=== PATIENT | male | born 1995 | race Caucasian/White ===

== ENCOUNTER 2021-04-30 12:34 | Emergency (ER) | payer OTHER, SELFPAY ==
[2021-04-30 12:55] VITALS: BP 116/64; PULSE 72; RESP 16; TEMP 36.9; O2SAT 99
--- NOTE | 2021-04-30 13:29 | ED.MALEGU ---
HPI - Male Genitourinary General Chief complaint: Urogenital-Male Stated complaint: swollen rt testicle Time Seen by Provider: 04/30/21 13:06 Source: patient and RN notes reviewed Mode of arrival: ambulatory Limitations: no limitations History of Present Illness HPI Narrative: Patient presents today with a 1 week history of right testicular pain and swelling that has been worsening since onset. Denies any additional symptoms to include dysuria, hematuria, penile discharge. Currently rates pain 9/10 and has been taking ibuprofen, Aleve, and Tylenol without relief. MD Complaint: testicle pain and testicle swelling Related Data Home Medications Medication Instructions Recorded Confirmed No Home Medications 04/30/21 04/30/21 Allergies Allergy/AdvReac Type Severity Reaction Status Date / Time No Known Allergies Allergy Verified 10/18/16 14:03 Review of Systems Review of Systems: CONSTITUTIONAL: Denies body aches, fever, chills, or sweats. EYES: Denies visual changes, redness, or discharge. ENT: Denies rhinorrhea, congestion, sore throat, or otalgia. CARDIOVASCULAR: Denies chest pain, palpitations, or edema. RESPIRATORY: Denies cough or dyspnea. GASTROINTESTINAL: Denies abdominal pain, nausea, vomiting, or diarrhea. GENITOURINARY: Denies dysuria or hematuria.+ Right testicular pain and swelling SKIN: Denies rash, itching, or wounds. MUSCULOSKELETAL: Denies back pain, joint pain, or myalgia. NEUROLOGIC: Denies headache, numbness, tingling, or weakness. PSYCH: Denies depression or anxiety. PMFSH Comments At time of signature, I have reviewed and agree with nursing past medical, surgical, social and family history unless otherwise noted. Please see nursing chart for further information. There is no relevant family history pertinent to the presenting complaint Exam Narrative: GENERAL: Well-appearing, well-nourished, and in no acute distress. HEAD: Normocephalic, atraumatic. EYES: EOMI. No redness or drainage. Conjunctivae normal. ENT: Mucous membranes pink and moist. NECK: Normal AROM. CHEST: No respiratory distress. : Right testicle is swollen and firm. No erythema noted. Tenderness to palpation inferiorly. No swelling or tenderness to the left testicle. Penis normal. MUSCULOSKELETAL: No bony tenderness. EXTREMITIES: Normal range of motion. No edema. SKIN: Warm, dry, no rash. Capillary refill normal. Normal skin turgor. NEURO: No focal deficits. Alert and oriented x3. Gait steady. PSYCH: Normal affect. No signs of depression or anxiety. Course Vital Signs Vital signs: Vital Signs Temperature 98.4 F 04/30/21 12:55 Pulse Rate 72 04/30/21 12:55 Respiratory Rate 16 04/30/21 12:55 Blood Pressure 116/64 04/30/21 12:55 Pulse Oximetry 99 04/30/21 12:55 Temperature 98.4 F 04/30/21 12:55 Pulse Rate 72 04/30/21 12:55 Respiratory Rate 16 04/30/21 12:55 Blood Pressure 116/64 04/30/21 12:55 Pulse Oximetry 99 04/30/21 12:55 Reviewed Transfer Transfered to: [facility] Transportation: Other (Private vehicle) Transfer rationale: Testicular pain and swelling Accepting physician: Dr. Beck MDM - Male Genitourinary Differential Diagnosis Differential diagnosis: Likely urethritis, epididymitis and other (Varicocele, hydrocele) Critical Care Time Critical Care Time Critical Care Time: No Discharge Plan Discharge Clinical Impression: Swelling of right testicle Patient Disposition: Acute Care Hospital Condition: Stable Prescriptions: No Action No Home Medications RF: 0 Follow-up/Referrals: UNKNOWN,DOCTOR [Primary Care Provider] - Time of Disposition: 13:34
== END 2021-04-30 13:39 | disposition short-term general hospital (02) ==
PROVIDERS: Emergency Provider Nurse Practitioner
DX: N50.89 Other specified disorders of the male genital organs (principal); Z86.14 Personal history of Methicillin resistant Staphylococcus aureus infection
CPT/HCPCS: 99212; G0463

== ENCOUNTER 2021-04-30 14:25 | Emergency (ER) | payer OTHER, SELFPAY ==
--- NOTE | ~2021-04-30 | US_ITS ---
EXAMINATION: US scrotum doppler DATE: 04/30/2021 15:22 INDICATION: Right testicular pain. TECHNIQUE: Grayscale and Doppler ultrasound images of the testes were obtained. COMPARISON: None. FINDINGS: The right testis measures 3.4 x 2.1 x 2.4 cm. The left testis measures 3.9 x 2.1 x 2.3 cm. There is normal vascular flow to both testes. The right epididymis demonstrate enlargement of the geremias l with increased vascularity, consistent with epididymitis. The left epididymis demonstrates a 0.8 cm cyst. There is a small right hydrocele. IMPRESSION: 1. Right-sided epididymitis. 2. Small right hydrocele. Reviewed, dictated and finalized at location A.
[2021-04-30 14:26] VITALS: BP 121/93; PULSE 49; RESP 18; TEMP 36.7; O2SAT 98
--- NOTE | 2021-04-30 15:46 | ED.GENADULT ---
HPI - General Adult General Chief complaint: Urogenital-Male Stated complaint: right testicular swelling Time Seen by Provider: 04/30/21 14:55 Source: RN notes reviewed History of Present Illness HPI narrative: Patient presents to emergency department from home for right testicular pain patient states his right testicle is red for the past 1 week with swelling of the right testicle. Patient states the area is tender to palpation he denies any fever chills abdominal pain nausea vomiting urethral discharge or any other symptoms. States he has taken ibuprofen with no relief. He denies any risk of sexually transmitted diseases last sexual activity over 1 month ago denies any other symptoms at this Related Data Allergies Allergy/AdvReac Type Severity Reaction Status Date / Time No Known Allergies Allergy Verified 04/30/21 14:55 Review of Systems Review of Systems: Gen.: Denies fevers or chills ENT: Denies congestion Respiratory: Denies shortness of breath or cough CV: Denies chest pain or palpitations GI: Denies abdominal pain nausea, emesis or diarrhea see HPI Musculoskeletal: Denies back pain or muscle pain Neuro: Denies numbness, tingling, weakness or focal weakness Skin: Denies rash Except as documented, all other systems reviewed and negative [facility] Past Medical History Medical History (Updated 04/30/21 @ 16:14 by Bogdan Clarke DO) Patient denies significant medical history Social History Social History (Updated 04/30/21 @ 15:47 by Bogdan Clarke DO) Smoking status: Never smoker Exam Narrative: APPEARANCE: No acute distress, nontoxic, resting in bed EYES: EOMI HEENT: Normocephalic, atraumatic, OMM RESPIRATORY: No respiratory distress ABDOMINAL: Soft, nontender, nondistended, no rebound or guarding : Normal external exam no skin lesions, mild swelling of the right scrotum with tenderness over the right testicle left testicle is nontender to palpation, no scrotal erythema MUSCULOSKELETAl: Moves all extremities. No clubbing, cyanosis or edema. NEURO: Awake and alert. Following commands, speech normal, no focal deficits SKIN:: Warm, dry. No rashes lesions or abrasions PSYCHIATRIC: Normal affect/mood, Course Course Emergency Course: Called and discussed with TELMA Charles for urology presentation work-up recommends patient start on doxycycline and outpatient follow-up as an outpatient patient is not had sexual intercourse in over 1 month does not feel the patient needs treated for STD Discussed with patient results of workup and diagnosis. Discussed need for follow-up with primary care, proper use of medication, and reasons to return to the emergency department. Patient understands and agrees to current treatment plan Vital Signs Vital signs: Vital Signs Temperature 98.0 F 04/30/21 14:26 Pulse Rate 49 L 04/30/21 14:26 Respiratory Rate 18 04/30/21 14:26 Blood Pressure 121/93 H 04/30/21 14:26 Pulse Oximetry 98 04/30/21 14:26 Temperature 98.0 F 04/30/21 14:26 Pulse Rate 49 L 04/30/21 14:26 Respiratory Rate 18 04/30/21 14:26 Blood Pressure 121/93 H 04/30/21 14:26 Pulse Oximetry 98 04/30/21 14:26 Medical Decision Making Vital Signs Vital Signs: Vital Signs Temperature 98.0 F 04/30/21 14:26 Pulse Rate 49 L 04/30/21 14:26 Respiratory Rate 18 04/30/21 14:26 Blood Pressure 121/93 H 04/30/21 14:26 Pulse Oximetry 98 04/30/21 14:26 Temperature 98.0 F 04/30/21 14:26 Pulse Rate 49 L 04/30/21 14:26 Respiratory Rate 18 04/30/21 14:26 Blood Pressure 121/93 H 04/30/21 14:26 Pulse Oximetry 98 04/30/21 14:26 Lab Data Labs: Lab Results 04/30/21 Range/Units 15:25 Urine Color Ирина (Yellow) Urine Appearance Clear (Clear) Urine pH 6.0 (5.0-9.0) Ur Specific [place] 1.030 (1.001-1.035) Urine Protein 1+ H (Negative) mg/dL Urine Glucose (UA) Negative (Negative) mg/dL Urine Ketones Trace (Negative) mg/dL Ur Blo
[2021-04-30] MEDS: HYDROcodone/acetaminophen (*CRX) 5-325 MG TABLET 1 TAB PO (16:00)
[2021-04-30 16:02] LABS: Add Urine Microscopic? YES; Appearance Urine Clear (Clear); Bilirubin Urine Negative (Negative); Blood Urine Negative (Negative); Color Urine Amber (Yellow); Glucose Urine UA Negative (Negative); Ketones Urine Trace mg/dL (Negative); Leukocyte Esterase Ur Trace LEU/UL (Negative); Mucus Urine Rare /lpf; Nitrate Urine Negative (Negative); Protein Urine 1+ mg/dL (Negative); Urobilinogen Urine Negative mg/dL (<2.0)
[2021-04-30] MEDS: DOXYCYCLINE HYCLATE 100 MG TABLET PO (16:23)
[2021-04-30 16:30] VITALS: BP 126/72; PULSE 60; RESP 18; O2SAT 99
== END 2021-04-30 16:30 | disposition home or self-care (01) ==
LOC: ANHED 16:22
PROVIDERS: Emergency Provider Emergency Medicine
DX: N45.1 Epididymitis (principal); N43.3 Hydrocele, unspecified
CPT/HCPCS: 76870; 81001; 93976; 99283; 99284; A9270